=== PATIENT | male | born 1985 | race African-American/Black ===

== ENCOUNTER 2019-08-04 18:28 | Emergency (ER) | payer OTHER ==
[2019-08-04 18:34] VITALS: BP 132/93; PULSE 84; TEMP 98; BMI 32.5
--- NOTE | 2019-08-06 23:23 | EKG ---
Test Reason : Blood Pressure : / mmHG Vent. Rate : 081 BPM Atrial Rate : 081 BPM P-R Int : 142 ms QRS Dur : 086 ms QT Int : 360 ms P-R-T Axes : 050 054 035 degrees QTc Int : 418 ms NORMAL SINUS RHYTHM NORMAL ECG NO PREVIOUS ECGS AVAILABLE Confirmed by WAYNE HARO MD ([id number]) on 08/06/2019 11:23:27 PM Referred By: Confirmed By:WAYNE HARO MD
== END 2019-08-04 19:21 | disposition left against medical advice (07) ==
LOC: JER 18:28
DX: Z53.21 Procedure and treatment not carried out due to patient leaving prior to being seen by health care provider (principal)
CPT/HCPCS: 93005; 93010; 99281-25